=== PATIENT | female | born 1940 | race Caucasian/White ===

== ENCOUNTER → 2024-04-15 10:59 | Outpatient (REF) | payer BC, SELFPAY | LOC: HWRAD 10:59 | PROVIDERS: ATTENDING PHYSICIAN Family Medicine | DX: Z78.0 Asymptomatic menopausal state (principal) | CPT/HCPCS: 77080 ==

== ENCOUNTER → 2024-05-23 09:48 | Outpatient (REF) | payer MEDICARE, BC, SELFPAY | LOC: WDC 09:48 | PROVIDERS: ATTENDING PHYSICIAN Family Medicine | DX: R22.2 Localized swelling, mass and lump, trunk (principal); N63.20 Unspecified lump in the left breast, unspecified quadrant; N63.22 Unspecified lump in the left breast, upper inner quadrant | CPT/HCPCS: 76642; 77062; 77066 ==